=== PATIENT | female | born 1970 | race African-American/Black ===

== ENCOUNTER 2017-01-19 10:08 | Emergency (ER) | payer MEDICARE, MEDICAID ==
[~2017-01-19] VITALS: Ht 160 cm; Wt 96.2 kg
[2017-01-19 10:55] LABS: APPEARANCE,URINE CLOUDY; KETONES,URINE 1+ (NEGATIVE); LEUKOCYTE ESTERASE ,URINE 2+ (NEGATIVE); NITRITE,URINE NEGATIVE (NEGATIVE); PH,URINE 5 (4.5-8.0); PROTEIN,URINE 2+ (NEGATIVE); UROBILINOGEN,URINE 1 MG/DL (0.0-1.0)
[2017-01-19 11:16] LABS: BACTERIA,URINE FEW /HPF; RBC,URINE TNTC /HPF (0 - 2); SQUAMOUS EPITHELIAL CELL,UR FEW /LPF (NONE/OCC)
[2017-01-19 11:17] LABS: CALCIUM OXALATE CRYSTALS,UR FEW /LPF
[2017-01-19 11:18] LABS: ICTOTEST NEGATIVE
[2017-01-19] MEDS ORDERED: NITROFURANTOIN100 M2 ORAL (11:24)
[2017-01-19 11:27] VITALS: BP 120/87
--- NOTE | 2017-01-19 11:30 | Emergency Room Report ---
History of Present Illness General Chief Complaint: Female Urogenital Problems Source: Patient Present Illness HPI 46 YOF endorses vaginal spotting for 3 days. States + test at home 3 days prior. Assoc with vaginal cramping. LMP was 2 months ago, usually regular. 2pads/day last 2-3 days. Denies abd pain, nausea/vomiting, diarrhea, fever/chills, previous abd/pelvic surgeries. Allergies: Coded Allergies: No Known Allergies (Unverified , 01/19/17) Patient History Past Medical History: none Past Surgical History: none Pertinent Family History: none Social History: Denies: alcohol use, drug use, smoking Last Menstrual Period: nov Now: No : 6 Para: 3 Immunizations: UTD Reviewed Nursing Documentation: PMH: Agreed, PSxH: Agreed Nursing Documentation-PMH Past Medical History: No Stated History Review of Systems All Other Systems: negative except mentioned in HPI Physical Exam Vital Signs Date Time Temp Pulse Resp B/P Pulse Ox O2 Delivery O2 Flow Rate FiO2 01/19/17 10:02 98.2 86 18 120/87 98 Room Air Sp02 EP Interpretation: reviewed, normal General Appearance: normal inspection, well appearing, no apparent distress, alert Head: atraumatic ENT: normal ENT inspection, hearing grossly normal, normal voice Neck: normal inspection, full range of motion, supple, no bony tend Respiratory: normal inspection, lungs clear, normal breath sounds, no respiratory distress, no retraction, no wheezing Cardiovascular #1: regular rate, rhythm, no edema Gastrointestinal: normal inspection, normal bowel sounds, non tender, soft, no guarding, no hernia Genitourinary: no CVA tenderness Musculoskeletal: normal inspection, back normal, normal range of motion, Maggy' s Sign negative Neurologic: normal inspection, alert, oriented x3, responsive, 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 VSS. Afebrile. Urine preg negative UA with some WBCs, RBCs Will tx empirically for UTI Hematuria/spotting also possible start of menstrual period lilia with assoc cramps DC home Last Vital Signs Date Time Temp Pulse Resp B/P Pulse Ox O2 Delivery O2 Flow Rate FiO2 01/19/17 11:27 98.2 18 120/87 98 Room Air 01/19/17 10:02 86 Status: improved Disposition: HOME, SELF-CARE Condition: Improved Scripts Nitrofurantoin Monohyd/M-Cryst* (MACROBID 100 MG*) 100 Mg Capsule 100 MG ORAL EVERY 12 HOURS for 7 Days, #14 CAP Prov: GLORIA PARKS M.D. 01/19/17 Patient Instructions: Hematuria, Adult Additional Instructions: - Take ALL antibiotics as prescribed - Take ibuprofen up to 3x a day for pain (take with food) GLORIA PARKS M.D. Jan 19, 2017 11:30
[2017-01-19 11:39] VITALS: BP 120/87
== END 2017-01-19 11:39 | disposition home or self-care (01) ==
LOC: EDBD 10:08 → EMR 11:10
DX: N30.01 Acute cystitis with hematuria (principal)
CPT/HCPCS: 81003; 81025; 99283